=== PATIENT | male | born 1965 | race Caucasian/White ===

== ENCOUNTER 2018-12-31 05:13 | Inpatient (IN) ==
--- NOTE | 2018-12-07 20:18 | PAT Medication Instructions ---
Medication Instructions Date of Service December 07, 2018 Home Medications meloxicam 7.5 mg PO DAILY tramadol 50 mg PO DAILY PRN trazodone 100 mg PO HS ASK your surgeon for instructions meloxicam 7.5 mg PO DAILY Take morning of surgery With a small sip of water, OTHERWISE NOTHING TO EAT OR DRINK AFTER MIDNIGHT: tramadol 50 mg PO DAILY PRN (okay to take up to 4 hours prior to surgery if needed) Take evening before surgery tramadol 50 mg PO DAILY PRN (if needed) trazodone 100 mg PO HS Other Notes If you have any questions please call us at [phone] or [phone] or [phone] or [phone]
--- NOTE | 2018-12-08 14:07 | Anesthesiology Consultation ---
Date of Service December 08, 2018 Assessment & Plan (1) Encounter for pre-operative examination: Chart Review Chart Review: Pending: Refer to Additional Notes / Consult section and Patient seen in Pre Admission Testing Awaiting labs and EKG. Patient appears ok for surgery. Agrees to SAB with sedation. Consults Requested none History Surgery Operation Date: 12/31/18 07:15 Proposed Procedures p Left Hip Replacement - Yoni Sanderson MD Height/Weight Height: 5 ft 8 in Weight: 93.5 kg Allergies Allergy/AdvReac Type Severity Reaction Status Date / Time No Known Allergies Allergy Verified 12/03/18 14:03 Medications Home Medications Medication Instructions Recorded Confirmed Last Taken meloxicam 7.5 mg PO DAILY 12/03/18 12/03/18 Unknown tramadol 50 mg PO DAILY PRN 12/03/18 12/03/18 Unknown trazodone 100 mg PO HS 12/03/18 12/03/18 Unknown Past Medical History Medical History Chronic back pain Osteoarthritis Exercise / Class Metabolic Activity 1 > 8 Run/Swim/Ski/Tennis Past Family History Family History Mother Family history of diabetes mellitus Uncle Family hx of colon cancer Father FHx: stomach cancer Past Surgical History Surgical History History of colonoscopy S/P epidural steroid injection S/P inguinal hernia repair as a child Past Anesthesia History No Hx of Anesthesia Complications and No Family Hx of Anesthesia Complications History of PONV No Hx of PONV and No Hx of Motion Sickness Social History Smoking Status: Former smoker tobacco type: cigarettes Smoking cigarettes per day: 1 ppd x 5 years Do You Dip or Chew Tobacco: No Smoking End Date: 1998 Hx Alcohol Use: Yes Alcohol type: beer alcohol intake frequency: a few times a week Hx Substance Use: No substance use type: does not use Physical Exam Vital Signs Last Vital Signs Temp 36.9 C 12/08/18 14:01 Pulse 80 12/08/18 14:01 Resp 18 12/08/18 14:01 BP 130/79 12/08/18 14:01 Pulse Ox 98 12/08/18 14:01 ENMT Mouth: + dentition abnormality and + dental restorations (lower partial ); no TMJ abnormality Thyromental Distance: > or= 3.5 Finger Breadths Mallampati Class: II Neck normal visual inspection Respiratory normal respiratory effort Auscultation: lungs clear to auscultation bilaterally Cardiovascular Rate/Rhythm: regular rate and regular rhythm Heart Sounds: no murmur Neurologic moves all extremities Motor/Sensory: no sensory deficit Psychiatric Orientation: alert and oriented x 3
[2018-12-08 16:03] LABS: Basophils # (auto) 0.06 K/uL (0-0.2); Basophils % (auto) 0.9 %; Eosinophils # (auto) 0.43 K/uL (0-0.5); Eosinophils % (auto) 6.4 %; Hematocrit (blood only) 40.3 % (42-52); Hemoglobin 13.8 g/dL (14.0-18.0); Immature Granulocytes # (auto) 0.01 K/uL (0.00-0.02); Immature Granulocytes % (auto) 0.1 %; Lymphocytes # (auto) 2.03 K/uL (1.2-3.4); Lymphocytes % (auto) 30.1 %; Mean Corpuscular Hemoglobin 30.8 pg (25-34); Mean Corpuscular Hgb Conc 34.2 g/dL (32-36); Mean Platelet Volume 9.8 fL (7.4-10.4); Monocytes # (auto) 0.61 K/uL (0.11-0.59); Neutrophils # (auto) 3.61 K/uL (1.4-6.5); Neutrophils % (auto) 53.5 %; Platelet Count 236 K/uL (130-400); Red Blood Count 4.48 M/uL (4.7-6.1); White Blood Count 6.75 K/uL (4.8-10.8)
[2018-12-08 16:10] LABS: Albumin Level 3.6 gm/dl (3.4-5.0); BUN Creatinine Ratio 16.1 (10-20); Calcium 8.4 mg/dl (8.5-10.1); Creatinine Clr Calc Pharmacy 89.6 ml/min; Est GFR (Non-African American) 79.4; Potassium 4.2 mmol/L (3.5-5.1)
[2018-12-08 16:11] LABS: Appearance Urine Clear (Clear); Bacteria Urine Automated Negative (Negative); Bilirubin Urine Negative (Negative); Blood Urine 1+ (Negative); Color Urine Yellow; Epithelial Cell Urine Auto 0-5 /lpf (0-5); Glucose Urine UA Negative (Negative); Ketones Urine Trace (Negative); Leukocyte Esterase Urine Negative (Negative); Nitrite Urine Negative (Negative); Protein Urine Negative (Negative); RBC Urine Automated 0-4 /hpf (0-4); Specific Gravity Urine 1.027 (1.000-1.030); Urobilinogen Urine Negative (Negative)
[2018-12-08 16:13] LABS: Bilirubin,Total 0.3 mg/dl (0.2-1); Globulin 3.5 gm/dl (2.5-4.0); Total Protein 7.1 gm/dl (6.4-8.2)
[2018-12-08 16:15] LABS: Partial Thromboplastin Time 27.1 Seconds (21.0-31.0); Prothrombin Time 9.8 Seconds (9.0-12.0)
[2018-12-09 06:01] LABS: Estimated Average Glucose 120 mg/dl; Hemoglobin A1C 5.8 % (4.5-5.6)
--- NOTE | 2018-12-09 14:14 | History & Physical Report ---
Date of Service December 09, 2018 Assessment & Plan (1) Primary osteoarthritis of left hip: DIAGNOSIS: Left hip osteoarthritis. PROCEDURE: Left total hip arthroplasty. PLAN: The patient is scheduled to undergo this procedure at the [facility] as an inpatient with Dr. Yoni Sanderson on December 31, 2018. Risks and complications of the procedure, such as infection, bleeding, pain, scarring, nerve and blood vessel damage, weakness, wound problems, stiffness, incomplete relief of symptoms, hardware failure, hardware loosening, wear, fracture, tendon or ligament injury, dislocation, leg length inequality, blood clots, embolism, heart attack, stroke, and , were explained to patient by myself; however, informed consent was not obtained today because Dr. Sanderson was not present during the examination. We will have the patient sign the consent form in the presence of Dr. Sanderson on the day of his surgery. We will need to obtain a preoperative medical clearance from the patient's primary care provider, Dr. Mercado, along with preoperative CBC with differential, complete metabolic panel, PT, INR, blood type and screen, urinalysis, urine culture, EKG, hemoglobin A1c, and a nasal culture for MRSA. The patient states she will obtain this testing prior to his preanesthesia clearance assessment. The patient was provided with an order to obtain a walker as well as a hip kit. He states he most likely either get them from either [employer] or [facility]. I went over the discharge planning packet with the patient, and he states he will most likely be discharged home with some home health services to do his rehab for 1-2 weeks postoperatively. I gave him information about lectures offered by [facility] in regards to joint replacement surgery. I also educated him about the use of antibiotics prior to dental procedures after total joint replacement surgery. I also advised him he will need to use an abduction pillow for 6 weeks postoperatively. I advised the patient that I will discharge him from the hospital with prescriptions for a narcotic pain medication, and send a prescription for diclofenac sodium to his pharmacy. I also advised him that we will have him take 2 baby aspirin per day for 30 days postoperatively for DVT prophylaxis, along with the use of WILMER stockings, and I will have him resume his prior use of acetaminophen. I will provide him with specific instructions in the discharge packet. The patient will most likely be inpatient for 1 night postoperatively. If he does well with physical therapy and occupational therapy, the next morning we will discharge him, and have him follow up in our clinic as scheduled on January 13 with myself at 9:00 a.m. At that appointment, I will provide him with an order for outpatient physical therapy along with rehab protocol. The patient verbalized understanding of all information provided during today's visit, thanked us for the care he has received, and states if he has questions or concerns that should arise prior to the procedure date, he will contact the clinic accordingly. History of Present Illness Chief Complaint: CHIEF COMPLAINT: Bilateral hip pain, left greater than right. Primary Care Provider: Aysha Santa DO HISTORY OF PRESENT ILLNESS: This 53-year-old male presents to the clinic today for his preoperative history and physical. The patient has a 3-year history of bilateral hip pain with the left being greater than the right. He localizes most of his pain in the posterolateral aspect of the hip with radiation into the groin. The patient has failed conservative treatment with PT and nonsteroidal agents. He denies numbness or tingling. He states that he just returned from a trip to [facility], and is ready to proceed with surgical intervention. PAST SURGICAL HISTORY: Hernia repair. PAST MEDICAL HISTORY: None. FAMILY HISTORY: Positive for cancer and diabetes. ALLERGIES: The patient has no known drug allergies. CURRENT MEDICATIONS: Acetaminophen unknown dosage as needed, ibuprofen unknown dosage as needed, meloxicam 7.5 mg oral tablet daily, and trazodone unknown dosage as needed. SOCIAL HISTORY: The patient denies a history of smoking or illicit drug use. States that he occasionally consumes 10-12 alcoholic beverages per week. Allergies Allergy/AdvReac Type Severity Reaction Status Date / Time No Known Allergies Allergy Verified 12/03/18 14:03 Home Medications Home Medications Medication Instructions Recorded Confirmed Type meloxicam 7.5 mg PO DAILY 12/03/18 12/03/18 History tramadol 50 mg PO DAILY PRN 12/03/18 12/03/18 History trazodone 100 mg PO HS 12/03/18 12/03/18 History Past Med/Surg History Medical History Chronic back pain Osteoarthritis Surgical History History of colonoscopy S/P epidural steroid injection S/P inguinal hernia repair as a child Family History Mother Family history of diabetes mellitus Uncle Family hx of colon cancer Father FHx: stomach cancer Social History Preferred Language: Mongolian Communication Ability: Effective Member Of The Legislative Assembly Required: No Beliefs That Will Affect Care: None Current Living Situation: Spouse Other Information That Helps Us Care for You: No Feels Safe at Home: Yes Safety Concerns: Feels Safe At This Time Smoking Status: Former smoker Tobacco Type: cigarettes ; Cigarettes Per Day: 1 ppd x 5 years ; Do You Dip or Chew Tobacco: No ; Smoking End Date: 1998 ; Second Hand Exposure: Yes (as a child) ; Tobacco Cessation Education Requested by Patient: No Hx Alcohol Use: Yes Alcohol type: beer Hx Substance Use: No Review of Systems All systems reviewed & are unremarkable except as noted in HPI & below Physical Exam Physical Exam: PHYSICAL EXAMINATION: Skin: The patient's skin is normal in appearance. No open skin lesions or discharge. Eyes: Pupils are equal and react to light and accommodating. Extraocular movements are intact. Throat: Posterior oropharynx is clear with absence of edema, erythema or exudate. Cardiovascular exam: The patient has a regular rate and rhythm with no murmurs or gallops appreciated. Lungs: Auscultation of lung morel reveals clear breath sounds throughout, no wheezing, rales or rhonchi. Abdomen is mildly obese, nondistended, nontender, with normoactive bowel sounds. Extremities: Left hip flexion is to 80 degrees before pain is elicited. External rotation is to 40 degrees, internal rotation is to negative 20 degrees. Stinchfield test is positive. Active abduction and adduction causes referred pain to the groin. There is crepitation with range of motion. There is tenderness to palpation over the anterior groin lateral aspect of the hip. Otherwise, the patient is neurovascularly intact in the left lower extremity. Calf is soft and supple, nontender to palpation. Gait is antalgic. Neurological exam: Cranial nerves 2-12 are intact. No motor or sensory deficit. Psychological/general exam: The patient is alert and oriented x3 with proper grooming and hygiene. Results & Data Laboratory Results Lab Results 12/08/18 12/08/18 12/08/18 Range/Units 14:34 14:34 14:34 WBC 6.75 (4.8-10.8) K/uL RBC 4.48 L (4.7-6.1) M/uL Hgb 13.8 L (14.0-18.0) g/dL Hct 40.3 L (42-52) % MCV 90.0 (80-100) fL MCH 30.8 (25-34) pg MCHC 34.2 (32-36) g/dL RDW Std Deviation 39.0 (36.4-46.3) fL RDW Coeff of Arie 12.0 (11.5-14.5) % Plt Count 236 (130-400) K/uL MPV 9.8 (7.4-10.4) fL Immature Gran % (Auto) 0.1 % Neut % (Auto) 53.5 % Lymph % (Auto) 30.1 % [place] % (Auto) 9.0 % Eos % (Auto) 6.4 % Baso % (Auto) 0.9 % Immature Gran # (Auto) 0.01 (0.00-0.02) K/uL Neut # (Auto) 3.61 (1.4-6.5) K/uL Lymph # (Auto) 2.03 (1.2-3.4) K/uL [place] # (Auto) 0.61 H (0.11-0.59) K/uL Eos # (Auto) 0.43 (0-0.5) K/uL Baso # (Auto) 0.06 (0-0.2) K/uL PT (9.0-12.0) Seconds INR (0.9-1.1) APTT (21.0-31.0) Seconds PTT Ratio Sodium 143 (136-145) mmol/L Potassium 4.2 (3.5-5.1) mmol/L Chloride 109 H (98-107) mmol/L Carbon Dioxide 28 (21-32) mmol/L Anion Gap 6.0 (3-11) BUN 17 (7-18) mg/dl Creatinine 1.07 (0.6-1.4) mg/dl Est Cr Clr Drug Dosing 89.6 ml/min Est GFR ( Amer) 92.0 Est GFR (Non-Af Amer) 79.4 BUN/Creatinine Ratio 16.1 (10-20) Glucose 92 (70-99) mg/dl Estimat Average Glucose mg/dl Hemoglobin A1c (4.5-5.6) % Calcium 8.4 L (8.5-10.1) mg/dl Total Bilirubin 0.3 (0.2-1) mg/dl AST 17 (15-37) U/L ALT 22 (12-78) U/L Alkaline Phosphatase 74 (45-117) U/L Total Protein 7.1 (6.4-8.2) gm/dl Albumin 3.6 (3.4-5.0) gm/dl Globulin 3.5 (2.5-4.0) gm/dl Albumin/Globulin Ratio 1.0 (0.9-2) Urine Color Yellow Urine Appearance Clear (Clear) Urine pH 5.0 (4.5-7.5) Ur Specific [place] 1.027 (1.000-1.030) Urine Protein Negative (Negative) Urine Glucose (UA) Negative (Negative) Urine Ketones Trace H (Negative) Urine Blood 1+ H (Negative) Urine Nitrite Negative (Negative) Urine Bilirubin Negative (Negative) Urine Urobilinogen Negative (Negative) Ur Leukocyte Esterase Negative (Negative) Urine WBC (Auto) 1-5 (0-5) /hpf Urine RBC (Auto) 0-4 (0-4) /hpf U Hyaline Cast (Auto) 1-5 (0-5) /lpf U Epithel Cells (Auto) 0-5 (0-5) /lpf Urine Bacteria (Auto) Negative (Negative) Nasal Screen MRSA (PCR) (Negative) Blood Type Antibody Screen 12/08/18 12/08/18 12/08/18 Range/Units 14:34 14:34 14:34 WBC (4.8-10.8) K/uL RBC (4.7-6.1) M/uL Hgb (14.0-18.0) g/dL Hct (42-52) % MCV (80-100) fL MCH (25-34) pg MCHC (32-36) g/dL RDW Std Deviation (36.4-46.3) fL RDW Coeff of Arie (11.5-14.5) % Plt Count (130-400) K/uL MPV (7.4-10.4) fL Immature Gran % (Auto) % Neut % (Auto) % Lymph % (Auto) % [place] % (Auto) % Eos % (Auto) % Baso % (Auto) % Immature Gran # (Auto) (0.00-0.02) K/uL Neut # (Auto) (1.4-6.5) K/uL Lymph # (Auto) (1.2-3.4) K/uL [place] # (Auto) (0.11-0.59) K/uL Eos # (Auto) (0-0.5) K/uL Baso # (Auto) (0-0.2) K/uL PT 9.8 (9.0-12.0) Seconds INR 1.0 (0.9-1.1) APTT 27.1 (21.0-31.0) Seconds PTT Ratio 1.0 Sodium (136-145) mmol/L Potassium (3.5-5.1) mmol/L Chloride (98-107) mmol/L Carbon Dioxide (21-32) mmol/L Anion Gap (3-11) BUN (7-18) mg/dl Creatinine (0.6-1.4) mg/dl Est Cr Clr Drug Dosing ml/min Est GFR ( Amer) Est GFR (Non-Af Amer) BUN/Creatinine Ratio (10-20) Glucose (70-99) mg/dl Estimat Average Glucose 120 mg/dl Hemoglobin A1c 5.8 H (4.5-5.6) % Calcium (8.5-10.1) mg/dl Total Bilirubin (0.2-1) mg/dl AST (15-37) U/L ALT (12-78) U/L Alkaline Phosphatase (45-117) U/L Total Protein (6.4-8.2) gm/dl Albumin (3.4-5.0) gm/dl Globulin (2.5-4.0) gm/dl Albumin/Globulin Ratio (0.9-2) Urine Color Urine Appearance (Clear) Urine pH (4.5-7.5) Ur Specific [place] (1.000-1.030) Urine Protein (Negative) Urine Glucose (UA) (Negative) Urine Ketones (Negative) Urine Blood (Negative) Urine Nitrite (Negative) Urine Bilirubin (Negative) Urine Urobilinogen (Negative) Ur Leukocyte Esterase (Negative) Urine WBC (Auto) (0-5) /hpf Urine RBC (Auto) (0-4) /hpf U Hyaline Cast (Auto) (0-5) /lpf U Epithel Cells (Auto) (0-5) /lpf Urine Bacteria (Auto) (Negative) Nasal Screen MRSA (PCR) Negative (Negative) Blood Type Antibody Screen 12/08/18 Range/Units 14:34 WBC (4.8-10.8) K/uL RBC (4.7-6.1) M/uL Hgb (14.0-18.0) g/dL Hct (42-52) % MCV (80-100) fL MCH (25-34) pg MCHC (32-36) g/dL RDW Std Deviation (36.4-46.3) fL RDW Coeff of Arie (11.5-14.5) % Plt Count (130-400) K/uL MPV (7.4-10.4) fL Immature Gran % (Auto) % Neut % (Auto) % Lymph % (Auto) % [place] % (Auto) % Eos % (Auto) % Baso % (Auto) % Immature Gran # (Auto) (0.00-0.02) K/uL Neut # (Auto) (1.4-6.5) K/uL Lymph # (Auto) (1.2-3.4) K/uL [place] # (Auto) (0.11-0.59) K/uL Eos # (Auto) (0-0.5) K/uL Baso # (Auto) (0-0.2) K/uL PT (9.0-12.0) Seconds INR (0.9-1.1) APTT (21.0-31.0) Seconds PTT Ratio Sodium (136-145) mmol/L Potassium (3.5-5.1) mmol/L Chloride (98-107) mmol/L Carbon Dioxide (21-32) mmol/L Anion Gap (3-11) BUN (7-18) mg/dl Creatinine (0.6-1.4) mg/dl Est Cr Clr Drug Dosing ml/min Est GFR ( Amer) Est GFR (Non-Af Amer) BUN/Creatinine Ratio (10-20) Glucose (70-99) mg/dl Estimat Average Glucose mg/dl Hemoglobin A1c (4.5-5.6) % Calcium (8.5-10.1) mg/dl Total Bilirubin (0.2-1) mg/dl AST (15-37) U/L ALT (12-78) U/L Alkaline Phosphatase (45-117) U/L Total Protein (6.4-8.2) gm/dl Albumin (3.4-5.0) gm/dl Globulin (2.5-4.0) gm/dl Albumin/Globulin Ratio (0.9-2) Urine Color Urine Appearance (Clear) Urine pH (4.5-7.5) Ur Specific [place] (1.000-1.030) Urine Protein (Negative) Urine Glucose (UA) (Negative) Urine Ketones (Negative) Urine Blood (Negative) Urine Nitrite (Negative) Urine Bilirubin (Negative) Urine Urobilinogen (Negative) Ur Leukocyte Esterase (Negative) Urine WBC (Auto) (0-5) /hpf Urine RBC (Auto) (0-4) /hpf U Hyaline Cast (Auto) (0-5) /lpf U Epithel Cells (Auto) (0-5) /lpf Urine Bacteria (Auto) (Negative) Nasal Screen MRSA (PCR) (Negative) Blood Type O Positive Antibody Screen NEGATIVE
[2018-12-31] MEDS ORDERED: TRANEXAMIC ACID 1,000 MG **IV Pre-op IV SCH (06:00)
[2018-12-31] MEDS ORDERED: SCOPOLAMINE 1.5 MG TDSY TD SCH (06:00)
[2018-12-31] MEDS ORDERED: dexAMETHasone 4 MG TAB PO SCH (06:00)
[2018-12-31] MEDS ORDERED: ROPIVACAINE 0.5% HCL/PF 150 MG, BUPIVACAINE 0.5% MPF 30 ML, EPINEPHrine 0.15 MG, Ketoro... INFIL SCH (06:00)
[2018-12-31] MEDS ORDERED: CEFAZOLIN 2000MG 2,000 MG/15 ML SYR IV SCH (06:00)
[2018-12-31] MEDS ORDERED: ACETAMINOPHEN 500 MG TAB PO SCH (06:00)
[2018-12-31] MEDS ORDERED: LR 60ML/HR IV SCH (06:00)
[2018-12-31] MEDS ORDERED: FAMOTIDINE 20 MG TAB PO SCH (06:00)
[2018-12-31] MEDS ORDERED: LR 500ML BOLUS, THEN 15ML/HR IV SCH (06:00)
[2018-12-31] MEDS ORDERED: METOCLOPRAMIDE HCL 10 MG TABLET PO SCH (06:00)
[2018-12-31] MEDS ORDERED: CeleBREX 200 MG CAP PO SCH (06:00)
[2018-12-31] MEDS ORDERED: TRAMADOL HCL 50 MG TABLET PO SCH (06:00)
[2018-12-31] MEDS ORDERED: BUPIVACAINE 0.5 % 5 MG/1 ML PF 10ML VIAL ONE (06:27)
[2018-12-31] MEDS ORDERED: TRANEXAMIC ACID 1,000 MG **IV Intra-op IV SCH (06:30)
[2018-12-31] MEDS ORDERED: fentaNYL citrate 100 MCG/2 ML VIAL ONE (06:35)
[2018-12-31] MEDS ORDERED: MIDAZOLAM HCL 1 MG/ML 2ML VIAL ONE ×2 (06:35→07:18)
--- NOTE | 2018-12-31 06:51 | History & Physical Bridge Note ---
Date of Service December 31, 2018 History & Physical Bridge Note I have examined the patient, reviewed the History & Physical and in the interval since the performance of the History & Physical I have noted the following changes of clinical significance: no changes noted
[2018-12-31] MEDS ORDERED: ORTHO JOINT ANESTHETIC ONE (06:53)
[2018-12-31] MEDS ORDERED: LABETALOL HCL IV 5 MG/ML 20ML IV PRN (07:18)
[2018-12-31] MEDS ORDERED: ONDANSETRON INJ 2 MG/ML 2 ML VIAL IV PRN ×2 (07:18→09:02)
[2018-12-31] MEDS ORDERED: fentaNYL citrate 100 MCG/2 ML VIAL IV PRN (07:18)
[2018-12-31] MEDS ORDERED: MEPERIDINE HCL 25 MG/ML CARP IV PRN (07:18)
[2018-12-31] MEDS ORDERED: PHENYLEPHRINE 100MCG/ML 5ML SYR IV PRN (07:18)
[2018-12-31] MEDS ORDERED: ATROPINE SULFATE 0.1 MG/ML 10ML SYR IV PRN (07:18)
[2018-12-31] MEDS ORDERED: ePHEDrine sulfate 50 MG/ML AMP IV PRN (07:18)
[2018-12-31] MEDS ORDERED: HYDROmorphone INJ 1 MG/ML SYRINGE IV PRN (07:18)
[2018-12-31] MEDS ORDERED: ONDANSETRON INJ 2 MG/ML 2 ML VIAL ONE (07:33)
[2018-12-31] MEDS ORDERED: LIDOCAINE HCL 2% 2 ML VIAL/AMP(20MG/ML) INFIL ONE (07:33)
[2018-12-31] MEDS ORDERED: PROPOFOL IV EMULSION 10 MG/ML 20 ML VIAL IV ONE (07:33)
--- NOTE | 2018-12-31 08:51 | Post Operative Brief Note ---
Immediate Post Op Note v1 Date of Surgery December 31, 2018 Pre & Post Diagnosis Operation Date: 12/31/18 07:15 Pre-Op Diagnosis: Left Hip Osteoarthritis Post-Op Diagnosis: Left Hip Osteoarthritis I identified the patient and participated in the time-out.: Yes Procedure Operation Date: 12/31/18 07:15 Actual Procedures p Left Hip Arthroplasty, Uncemented(Left) - Yoni Sanderson MD Surgeon Yoni Sanderson MD Interrelated Special Education Teacher AUTUMN Jimenez PA-C Estimated Blood Loss 200 Findings Consistent with Post-Op Diagnosis Fluids 100 cc Anesthesia Type Spinal MAC Complications none Disposition Accompanied Patient To Recovery: No Disposition: Recovery Room
[2018-12-31] MEDS ORDERED: MAGNESIUM HYDROXIDE SUSP 30 ML UDC PO PRN (09:02)
[2018-12-31] MEDS ORDERED: bisacodyL 10 MG SUPP PR PRN (09:02)
[2018-12-31] MEDS ORDERED: METOCLOPRAMIDE HCL INJ 5 MG/ML 2 ML VIAL IV PRN (09:02)
[2018-12-31] MEDS ORDERED: DiphenhydrAMINE HCL 50 MG/ML VIAL IV PRN (09:02)
[2018-12-31] MEDS ORDERED: TRAMADOL HCL 50 MG TABLET PO PRN ×2 (09:02→09:07)
[2018-12-31] MEDS ORDERED: HYDROmorphone INJ 0.5 MG/0.5 ML SYR IV PRN (09:02)
[2018-12-31] MEDS ORDERED: TAMSULOSIN HCL 0.4 MG CAP PO PRN (09:02)
[2018-12-31] MEDS ORDERED: NALOXONE HCL 0.4 MG/1 ML VIAL/CARP IV PRN (09:02)
[2018-12-31] MEDS ORDERED: ALUMINUM/MAGNESIUM SUSP 30 ML UDC PO PRN (09:02)
--- NOTE | 2018-12-31 09:02 | Operative Report ---
Post Operative Report Pre & Post Diagnosis Operation Date: 12/31/18 07:15 Pre-Op Diagnosis: Left Hip Osteoarthritis Post-Op Diagnosis: Left Hip Osteoarthritis I identified the patient and participated in the time-out.: Yes Procedure Operation Date: 12/31/18 07:15 Actual Procedures p Left Hip Arthroplasty, Uncemented(Left) - Yoni Sanderson MD Surgeon Yoni Sanderson MD Contract Preparer AUTUMN Jimenez PA-C Estimated Blood Loss 200 Findings Consistent with Post-Op Diagnosis Specimens Left femoral head Complications none Disposition Accompanied Patient To Recovery: Yes Disposition: Recovery Room Description of Procedure I was present during the entire procedure assisting with wound closure and dressing application. Please see Dr. Sanderson procedure note for specifics of the case. I attest to the content of the Intraoperative Record and any orders documented therein. Any exceptions are noted below.
--- NOTE | 2018-12-31 09:40 | Anesthesiology Progress Note ---
Date of Service December 31, 2018 Anesthesia Post Procedure Vital Signs Vital Signs: Temp Pulse Pulse Resp BP BP Pulse Ox 12/31/18 09:30 56 L 12 108/73 99 12/31/18 09:20 70 13 112/68 99 12/31/18 09:10 66 14 112/72 98 12/31/18 09:01 36.4 C L 77 15 110/72 98 12/31/18 06:12 37 C 73 20 143/94 H 96 Pain Intensity Left Hip: Pain Intensity: 0 Transfer of Care Handoff Completed per policy Notes Mental Status: alert / awake / arousable Patient Amnestic to Procedure: Yes Nausea / Vomiting: adequately controlled Pain: adequately controlled Airway Patency, RR, SpO2: stable & adequate BP & HR: stable & adequate Hydration State: stable & adequate Neuraxial Anesthesia: was administered and sensory block is resolving Anesthetic Complications: no major complications apparent and Pt Satisfied with anesthetic care
--- NOTE | 2018-12-31 10:05 | Operative Report ---
DATE OF OPERATION: 12/31/2018 PREOPERATIVE DIAGNOSIS: Left hip osteoarthritis. POSTOPERATIVE DIAGNOSIS: Left hip osteoarthritis. OPERATIONS PERFORMED: Left total hip arthroplasty. SURGEON: Yoni Sanderson MD. RELOCATION COMMISSIONER: Dr. Parvez Jimenez. ESTIMATED BLOOD LOSS: 200 mL. IV FLUIDS: 1000 mL crystalloid. SPECIMENS: Femoral head. COMPLICATIONS: None. IMPLANTS: 1. DePuy [place] Gription acetabular shell sector cup 56 mm outer diameter. 2. [place] cancellous bone screw 6.5 mm x 45 mm. 3. [place] Ultrex polyethylene liner neutral for a 36 mm femoral head. 4. DePuy [place] 5 high offset tapered femoral stem with Por[place]oat. 5. Biolox delta ceramic femoral head 36 mm diameter with +5 offset. INDICATIONS: The patient is a 53-year-old gentleman who has had bilateral hip pain, left worse than right for over 3.5 years. X-rays demonstrate end-stage osteoarthritis with a complete joint space loss, subchondral sclerosis and peripheral osteophyte formation. I had a long discussion with him about the risks and benefits of surgery, alternatives to surgery and expected outcomes. After reviewing all these, he elected to proceed with surgery. All questions were answered. Informed consent was signed. DESCRIPTION OF THE OPERATION: The patient was identified in the preoperative holding area where his surgical site was marked. He was given a spinal anesthetic and brought back to main Operating Room where he was placed on the Operating Room table and moved up into the lateral decubitus position. Axillary roll was placed. All bony prominences were padded. Perioperative antibiotics were administered. He was prepped and draped in normal sterile fashion. Prior to incision, a multidisciplinary timeout was called. All in the room were in agreement. We began by making a 16 cm long incision for a posterior approach to the hip. We dissected down through subcutaneous tissues to the level of fascia, which was incised in line with the incision. Charnley bow was placed. Trochanteric bursa was excised. The piriformis and short external rotators were dissected off the posterior aspect of the hip capsule. A box cut was made in the hip capsule. The femoral head was dislocated. Center of the femoral head to lesser trochanteric distance was measured at 57 mm. We then made our femoral neck cut at 10 mm above the lesser trochanter, which was our preoperative template. The femoral head was then sent for permanent specimen. The acetabulum was then exposed. The contents of the cotyloid fossa were covered by osteophyte. Therefore, a 46 mm reamer was used to remove the medial osteophytes exposing the pulvinar fat which was then removed with electrocautery. We then continued to medialize him with a 48 mm reamer down to the medial wall. We then sequentially reamed them up all the way to a size 56 mm cup. This gave us a nice cancellous bleeding bone circumferentially. The acetabulum was then irrigated out and the [place] Gription 56 mm cup was opened up and was impacted down into position with 25 degrees of anteversion and 45 degrees of lateral opening. The 45 mm drill was used and a 45 mm screw was then placed up into the ilium. Excellent fixation was obtained. The polyethylene liner for a 36 mm femoral head was then opened up and was impacted down into position. The locking mechanism was checked to ensure that it engaged, which it had. Next, the femoral neck was exposed. The abductors were protected. The lateral neck was removed with a box osteotome. Intramedullary guide was used followed by the lateralizing reamer. We then reamed him up to a size 5, which was our preoperative template. We then broached him all the way up to a size 5, which had excellent fill of the femoral neck and good torsional stability. We then trialled them with a high offset neck and a +1.5 head. He had a little bit shortened leg lengths with +1.5 head. Therefore, we upsized him to a +5 head. This had symmetric leg lengths. He was stable in external rotation and extension. He had good stability in the sleeper position. At 90 degrees of hip flexion, he could be internally rotated 45 degrees before leaving out of the cup. I was very happy with the stability exam. Therefore, the trial components from the femur were removed. The femoral canal was irrigated and dried. A real size 5 high offset [place] femoral stem was opened up and was impacted down into position. It sat at the same level as the broach. We therefore opened up the +5 ceramic femoral head 36 mm diameter and gently impacted this onto the trunnion. The hip was then atraumatically reduced. The wound was irrigated out with copious amounts of Betadine, which was allowed to sit for 3 minutes. Next, the periarticular injection cocktail was placed. We then repaired the piriformis and short external rotators along with the posterior hip capsule through bone tunnels in the posterior aspect of the greater trochanter. The fascia was run with #1 looped PDS suture. The subcutaneous layer was closed with #1 PDS. A 2-0 Vicryl was used in the deep dermis. Zipline was used for the skin. The patient was placed into a Silverlon dressing as well as a compressive dressing over the top. He was then rolled supine. His leg lengths were checked which were symmetric. His sedation was lifted and he was transferred to the Recovery Room in stable condition. POSTOPERATIVE COURSE: The patient will be admitted overnight for pain control and monitoring. He will be weightbearing as tolerated with posterior hip precautions. He will be on aspirin for DVT prophylaxis. I attest to the content of the Intraoperative Record and any orders documented therein. Any exception s are noted below.
--- NOTE | 2018-12-31 10:06 | XRay Report ---
XR hip 1V LT w pelvis CLINICAL HISTORY: Postoperative evaluation. COMPARISON: Pelvis radiograph December 08, 2018. FINDINGS: Alignment of the total left hip arthroplasty is anatomic. There is no fracture or unexpect ed radiopaque foreign body. Severe right hip osteoarthrosis noted. IMPRESSION: Expected findings following total left hip arthroplasty. Electronically signed by: Edd Chávez M.D. 12/31/2018 10:04 AM
[2018-12-31] MEDS: SODIUM CHLORIDE 0.9% 1000ML 1,000 ML IV SCH ×2 (10:23→22:25)
[2018-12-31] MEDS: KETOROLAC 30 MG/ML VIAL IV SCH ×3 (10:34→21:54)
[2018-12-31] MEDS: CEFAZOLIN 2000MG 2,000 MG/15 ML SYR IV SCH ×2 (13:53→21:54)
[2018-12-31] MEDS: ACETAMINOPHEN 500 MG TAB PO SCH ×2 (13:53→20:46)
[2018-12-31] MEDS ORDERED: TRANEXAMIC ACID 1,000 MG in 0.9 % SODIUM CHLORIDE 100 ML IV SCH (15:00)
[2018-12-31] MEDS: CHECK SCOPOLAMINE PATCH PLACEMENT SCH ×2 (16:09→23:51)
[2018-12-31] MEDS: OXYCODONE HCL IR 5 MG TAB (IMMEDIATE RELEASE) PO PRN (16:12)
[2018-12-31] MEDS: DOCUSATE SODIUM 100 MG CAP PO SCH (20:45)
[2018-12-31] MEDS: ASPIRIN 81 MG ECTAB PO SCH (20:45)
[2018-12-31] MEDS ORDERED: TRAZODONE HCL 100 MG TAB PO SCH (21:00)
[2018-12-31] MEDS ORDERED: SENNA 8.6 MG TAB PO SCH (21:00)
[2019-01-01] MEDS: OXYCODONE HCL IR 5 MG TAB (IMMEDIATE RELEASE) PO PRN (03:54)
[2019-01-01 05:20] LABS: Basophils # (auto) 0.01 K/uL (0-0.2); Basophils % (auto) 0.1 %; Eosinophils # (auto) 0.03 K/uL (0-0.5); Eosinophils % (auto) 0.3 %; Hematocrit (blood only) 32.1 % (42-52); Hemoglobin 11.1 g/dL (14.0-18.0); Immature Granulocytes # (auto) 0.03 K/uL (0.00-0.02); Immature Granulocytes % (auto) 0.3 %; Lymphocytes # (auto) 1.38 K/uL (1.2-3.4); Lymphocytes % (auto) 11.5 %; Mean Corpuscular Hemoglobin 30.4 pg (25-34); Mean Corpuscular Hgb Conc 34.6 g/dL (32-36); Mean Corpuscular Volume 87.9 fL (80-100); Monocytes # (auto) 1.23 K/uL (0.11-0.59); Monocytes % (auto) 10.3 %; Neutrophils # (auto) 9.28 K/uL (1.4-6.5); Neutrophils % (auto) 77.5 %; Platelet Count 202 K/uL (130-400); RDW Coefficient of Variation 12.1 % (11.5-14.5); RDW Standard Deviation 39.2 fL (36.4-46.3); Red Blood Count 3.65 M/uL (4.7-6.1); White Blood Count 11.96 K/uL (4.8-10.8)
[2019-01-01] MEDS: KETOROLAC 30 MG/ML VIAL IV SCH (05:45)
[2019-01-01] MEDS: ACETAMINOPHEN 500 MG TAB PO SCH (05:45)
[2019-01-01] MEDS: SODIUM CHLORIDE 0.9% 1000ML 1,000 ML IV SCH (05:50)
[2019-01-01 05:51] LABS: BUN Creatinine Ratio 17.8 (10-20); Calcium 8.1 mg/dl (8.5-10.1); Creatinine Clr Calc Pharmacy 90.1 ml/min; Est GFR (Non-African American) 79.4; Potassium 4.5 mmol/L (3.5-5.1)
--- NOTE | 2019-01-01 07:47 | Anesthesiology Progress Note ---
Date of Service January 01, 2019 Anesthesia Post Procedure Vital Signs Vital Signs: Temp Pulse Pulse Resp BP Pulse Ox 01/01/19 07:28 36.8 C 52 L 16 110/67 99 01/01/19 04:00 36.6 C 72 16 94/51 L 96 12/31/18 23:15 36.7 C 63 18 105/64 97 12/31/18 15:21 36.6 C 70 18 131/84 97 12/31/18 13:00 74 16 117/72 94 12/31/18 12:00 73 16 133/81 95 12/31/18 10:59 74 16 121/76 97 12/31/18 10:31 36.9 C 78 18 138/71 95 12/31/18 10:07 36.6 C 77 16 114/73 99 12/31/18 09:40 37.0 C 59 L 13 123/76 99 12/31/18 09:30 56 L 12 108/73 99 12/31/18 09:20 70 13 112/68 99 12/31/18 09:10 66 14 112/72 98 12/31/18 09:01 36.4 C L 77 15 110/72 98 Pain Intensity Left Hip: Pain Intensity: 3 Notes Mental Status: alert / awake / arousable and participated in evaluation Nausea / Vomiting: adequately controlled Pain: adequately controlled Airway Patency, RR, SpO2: stable & adequate BP & HR: stable & adequate Hydration State: stable & adequate
[2019-01-01] MEDS ORDERED: dexAMETHasone 4 MG TAB PO SCH (08:00)
[2019-01-01] MEDS: ASPIRIN 81 MG ECTAB PO SCH (08:38)
[2019-01-01] MEDS: DOCUSATE SODIUM 100 MG CAP PO SCH (08:38)
--- NOTE | 2019-01-01 08:44 | Orthopedic Progress Note ---
Date of Service January 01, 2019 Assessment & Plan (1) History of total left hip arthroplasty: Total hip precautions WBAT with walker Abduction pillow use x 6 wks TEDs and Aspirin for DVT prophy Pain control with PO meds In-home rehab x 2 wks F/u at [facility] as scheduled in 2 wks. Subjective This 53 yo M is day 1 s/p Left total hip arthroplasty. States that is doing well. Pain is 2/10. States that it is well controlled with PO meds. Has been up ambulating with the walker. Has no numbness/tingling, fever, chill, sweat, nausea, vomiting or difficulty voiding. States that he is ready to go home. Review of Systems Review of Systems: All systems reviewed & are unremarkable except as noted in HPI & below Physical Exam Physical Exam: Left lower leg: Dressing clean, dry and intact. Able to fire quad and perform SLRT. Knee ROM from 0-90 causes only mild hip discomfort. Minimal pain with very light internal and external hip rotation. Able to actively dorsi/plantar flex foot. Calf soft and supple. Periph pulses easily palpable. Cap refill < 2 seconds. Results & Data Vital Signs (Past 12 Hours) Vital Signs Temp Pulse Resp BP Pulse Ox 01/01/19 07:28 36.8 C 52 L 16 110/67 99 01/01/19 04:00 36.6 C 72 16 94/51 L 96 12/31/18 23:15 36.7 C 63 18 105/64 97 Laboratory Results 01/01/19 01/01/19 Range/Units 05:04 05:04 WBC 11.96 H (4.8-10.8) K/uL RBC 3.65 L (4.7-6.1) M/uL Hgb 11.1 L (14.0-18.0) g/dL Hct 32.1 L (42-52) % MCV 87.9 (80-100) fL MCH 30.4 (25-34) pg MCHC 34.6 (32-36) g/dL RDW Std Deviation 39.2 (36.4-46.3) fL RDW Coeff of Arie 12.1 (11.5-14.5) % Plt Count 202 (130-400) K/uL MPV 9.0 (7.4-10.4) fL Immature Gran % (Auto) 0.3 % Neut % (Auto) 77.5 % Lymph % (Auto) 11.5 % Moody % (Auto) 10.3 % Eos % (Auto) 0.3 % Baso % (Auto) 0.1 % Immature Gran # (Auto) 0.03 H (0.00-0.02) K/uL Neut # (Auto) 9.28 H (1.4-6.5) K/uL Lymph # (Auto) 1.38 (1.2-3.4) K/uL Moody # (Auto) 1.23 H (0.11-0.59) K/uL Eos # (Auto) 0.03 (0-0.5) K/uL Baso # (Auto) 0.01 (0-0.2) K/uL Sodium 139 (136-145) mmol/L Potassium 4.5 (3.5-5.1) mmol/L Chloride 108 H (98-107) mmol/L Carbon Dioxide 28 (21-32) mmol/L Anion Gap 3.0 (3-11) BUN 19 H (7-18) mg/dl Creatinine 1.07 (0.6-1.4) mg/dl Est Cr Clr Drug Dosing 90.1 ml/min Est GFR ( Amer) 92.0 Est GFR (Non-Af Amer) 79.4 BUN/Creatinine Ratio 17.8 (10-20) Glucose 109 H (70-99) mg/dl Calcium 8.1 L (8.5-10.1) mg/dl
[2019-01-01] MEDS ORDERED: MULTIVITAMIN TAB PO SCH (09:00)
--- NOTE | 2019-01-01 10:56 | Discharge Summary ---
Date of Service January 01, 2019 Admission HPI Per Admitting Provider HISTORY OF PRESENT ILLNESS: This 53-year-old male presents to the clinic today for his preoperative history and physical. The patient has a 3-year history of bilateral hip pain with the left being greater than the right. He localizes most of his pain in the posterolateral aspect of the hip with radiation into the groin. The patient has failed conservative treatment with PT and nonsteroidal agents. He denies numbness or tingling. He states that he just returned from a trip to [facility], and is ready to proceed with surgical intervention. PAST SURGICAL HISTORY: Hernia repair. PAST MEDICAL HISTORY: None. FAMILY HISTORY: Positive for cancer and diabetes. ALLERGIES: The patient has no known drug allergies. CURRENT MEDICATIONS: Acetaminophen unknown dosage as needed, ibuprofen unknown dosage as needed, meloxicam 7.5 mg oral tablet daily, and trazodone unknown dosage as needed. SOCIAL HISTORY: The patient denies a history of smoking or illicit drug use. States that he occasionally consumes 10-12 alcoholic beverages per week. Admission Exam Per Admitting Provider PHYSICAL EXAMINATION: Skin: The patient's skin is normal in appearance. No open skin lesions or discharge. Eyes: Pupils are equal and react to light and accommodating. Extraocular movements are intact. Throat: Posterior oropharynx is clear with absence of edema, erythema or exudate. Cardiovascular exam: The patient has a regular rate and rhythm with no murmurs or gallops appreciated. Lungs: Auscultation of lung morel reveals clear breath sounds throughout, no wheezing, rales or rhonchi. Abdomen is mildly obese, nondistended, nontender, with normoactive bowel sounds. Extremities: Left hip flexion is to 80 degrees before pain is elicited. External rotation is to 40 degrees, internal rotation is to negative 20 degrees. Stinchfield test is positive. Active abduction and adduction causes referred pain to the groin. There is crepitation with range of motion. There is tenderness to palpation over the anterior groin lateral aspect of the hip. Otherwise, the patient is neurovascularly intact in the left lower extremity. Calf is soft and supple, nontender to palpation. Gait is antalgic. Neurological exam: Cranial nerves 2-12 are intact. No motor or sensory deficit. Psychological/general exam: The patient is alert and oriented x3 with proper grooming and hygiene. Principal Diagnosis Left hip osteoarthritis Discharge Exam Left lower leg: Dressing clean, dry and intact. Able to fire quad and perform SLRT. Knee ROM from 0-90 causes only mild hip discomfort. Minimal pain with very light internal and external hip rotation. Able to actively dorsi/plantar flex foot. Calf soft and supple. Periph pulses easily palpable. Cap refill < 2 seconds. Discharge Data Allergies Allergy/AdvReac Type Severity Reaction Status Date / Time No Known Allergies Allergy Verified 12/31/18 05:40 Consultations 01/01/19 08:00 Consult Case Management - Discharge Planning Routine Procedures Performed Operation Date: 12/31/18 07:15 Actual Procedures p Left Hip Arthroplasty, Uncemented(Left) - Yoni Sanderson MD Hospital Course (1) History of total left hip arthroplasty: Patient had an uneventful overnight stay. Pain was well controlled and he was able to easily ambulate with walker assistance. Ready for Discharge after AM PT/OT today. Total hip precautions WBAT with walker Abduction pillow use x 6 wks TEDs and Aspirin for DVT prophy Pain control with PO meds In-home rehab x 2 wks F/u at [facility] as scheduled in 2 wks. Total Time Total Time Spent Total Time Spent (In Minutes): 20 mins Total Time Includes: Examination of the Patient, Discharge Planning and Medication Reconciliation Discharge Plan Discharge Items Patient Disposition: Home - Home Health Services Reason For Visit: Left Hip Osteoarthritis Discharge Diagnosis: Left Hip Osteoarthritis Activity: As commented below Lifting: None Bathing: Keep incision dry Bathing Comment: May shower tomorrow Sexual Activity: Wait until after follow-up appointment Exercise/Sports: Wait until after follow-up appointment Weightbearing: Left weightbearing Weightbearing Comment: as tolerated with walker assistance Non-emergency contact: Primary Care Provider Call non-emergency contact if: you have any medication questions, your pain is not controlled, your temperature is above 101.5, your wound has increased drainage and your wound pain has increased Follow-up/Referrals: Aysha Santa DO [Primary Care Provider] - Diet: Regular Addtl Attending Provider Instructions: Post-operative Instructions Dear Patient and Family/Friends, Before you are discharged from the hospital, it is important to know what to expect when you get home after surgery. To that end, we have created this sheet of discharge instructions which covers many commonly asked questions. Make sure you go through this sheet in its entirety with your nurse before you are discharged. Please note that we will go over the specifics of your surgery and recovery when you return for your first post-operative visit. Sincerely, Dr. Sanderson Medications 1. Aspirin 81 mg: you will take one tablet twice daily for 30 days post operatively to prevent blood clots. Please purchase this medication 2. Extra Strength Tylenol 500 mg: you may take two of these tablets with every other dose of your Oxycodone. When you discontinue use of Oxycodone, you may take every 6-8 hours as needed. 3. Oxycodone 5mg: you will be prescribed 30 of these tablets for pain control for the first several days post operatively as needed. 4. 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 Take 1 tablet after breakfast and 1 tab after dinner for 30 days post operative. An additional refill will be provided. If you take any other antiinflammatory medication, please discontinue them while you are using this medication. Pain Expect to be in a fair amount of pain after surgery. Remember, our goal is not to eliminate your pain, but to make it tolerable. It is a good idea to stay ahead of your pain by taking the medications you were prescribed once you get home. Typically, the pain starts improving 3-7 days after surgery. You should start weaning off the narcotic pain medication (oxycodone, hydrocodone, hydromorphone, morphine) as soon as your pain improves. Please call our office if your pain is not adequately controlled. Ice Ice your operative site at least 5 times a day for 15-30 minutes at a time. Make sure you have a thin cloth between the ice or cooling unit and your skin to prevent cosme bite. This is especially important if you received a nerve block. Continue icing your operative site for the first 5-7 days after surgery, then as needed. Diet/Nausea/Vomiting Start by drinking clear liquids and eating crackers. If you can tolerate this, then you may resume your normal diet. If you feel nauseated or vomit, take Zofran/ondansetron (if prescribed). Please call our office if you have intractable nausea or vomiting, or, if after hours, you may go to the Emergency Room for help. Constipation Constipation is a common side effect of narcotic pain medication. If you have not had a bowel movement within 2 days after surgery, we recommend purchasing an over the counter laxative such as Milk of Magnesia, Dulcolax, or Miralax from a local pharmacy, and taking it as instructed. Call our clinic if any questions. Nerve block The anesthesia team sometimes places a nerve block to help with post-operative pain control. This results in significant numbness and inability to move the extremity. The nerve block usually wears off in 8-12 hours, but sometimes can last up to 24 hours. Please call our office if you are still unable to move your extremity after 24 hours, unless you received a pain pump to take home. Nerve blocks typically wear off quickly, so start taking pain medication as soon as you start feeling soreness near your surgical site. Weight bearing and Range of Motion. Do not bear any weight through your operative extremity immediately after surgery. If you had upper extremity surgery, do not lift anything with that arm. If you are in a knee brace, keep it locked in place until your follow-up. We will discuss your weight bearing, range of motion, and lifting restrictions in detail at your first post-operative appointment. Continuous Passive Motion (CPM) Machine If you were prescribed a CPM machine, it will start after your first post- operative appointment, at which time we will give you instructions on the range of motion settings and duration of treatment Physical therapy You will be given a prescription for physical therapy or occupational therapy at your first post-operative appointment. Typically, patients start therapy within 1 week of surgery Wound care and showering We will inspect your wound at your first post-operative visit, and may do a dressing change at that time. Most patients will be in a water-proof dressing that is removed 14 days after surgery. It is normal to see some dried blood on the dressing. Do not remove your dressing, paper strips or sutures yourself unless you are given permission. Showering is allowed the day after surgery. Do not scrub or remove any dressings. The wound should not be submerged underwater (i.e. in a bathtub or pool) until 4 weeks after surgery WILMER stockings If you were given white stockings, these are to be worn at all times except to shower (on both legs) for the first 2 weeks after surgery. Driving You may not drive while taking narcotic pain medication or while in a cast, splint, sling or brace. You, the patient, need to make the final determination about when you are safe to drive, however, the earliest you may consider driving after surgery is below: Hand/Wrist/Elbow Surgery: 3 days Shoulder Surgery: 2 weeks Hip,/Knee/Ankle Surgery: 4 weeks Fracture repair: 6 weeks Return to Work Your return to work depends on what surgery was done and what type of work you do. Please bring any paperwork your employer needs completed to your first post-operative visit. Also, bring a description of your job duties, as this helps us to understand what risks you may face at work. Travel Avoid long distance travel (greater than 1 hour) in airplanes and cars for the first 6 weeks after surgery. If you must travel, you need to have a Doppler ultrasound done before you travel to rule out a blood clot in your legs. Follow-up You should have a follow-up appointment already scheduled 1-2 days after surgery. If not, please contact our office to make this appointment before you leave the hospital. When to call the office It is normal to have swelling and bruising in the limb that was operated on. This will improve with time. It is also normal to have fevers for the first 2 days after surgery. Reasons you should call your doctor include: Uncontrolled pain; Nausea, vomiting, or constipation that does not improve with medication; Fevers over 101.5, chills, sweats; Drainage or bleeding from the wound; Foul odor; Spreading areas of redness; Any other concerns Pending Studies at Discharge: No Stand-Alone Forms: [facility], Opioid Pain Management Medications and DC Order Prescriptions: New oxycodone 5 mg tablet 5 mg PO Q6H PRN (Reason: pain) Qty: 30 RF: 0 diclofenac sodium 75 mg tablet,delayed release (DR/EC) 75 mg PO BID PRN (Reason: pain) 30 Days Qty: 60 RF: 1 Continued tramadol 50 mg Tablet 50 mg PO DAILY PRN (Reason: Pain) RF: 0 trazodone 100 mg Tablet 100 mg PO HS RF: 0 Discontinued meloxicam 7.5 mg Tablet 7.5 mg PO DAILY RF: 0 Discharge Orders: Discharge Order (Routine); Ordered 01/01/19 Ordered By: Teddy Chung/Other Patient Handouts: Surgery Prevent DVT After, Replacement Hip After Hospital Admission Data Admit Date/Time: 12/31/18 09:03 Attending Provider: Yoni Sanderson Admit Provider: Yoni Sanderson Primary Care Provider: Aysha Santa Other Interventions: Discharge Summary Assessment (RN) Last Done: 01/01/19 09:26
[2019-01-01] MEDS ORDERED: CeleBREX 200 MG CAP PO SCH (11:00)
== END 2019-01-01 11:27 | disposition home health service (06) | DRG 470 ==
LOC: ASU 05:13 → 3E 09:03

== ENCOUNTER 2019-08-04 09:53 | Inpatient (IN) ==
--- NOTE | 2019-06-10 15:07 | Anesthesiology Consultation ---
Date of Service June 10, 2019 Assessment & Plan (1) Encounter for pre-operative examination: Chart Review Chart Review: Pending: Refer to Additional Notes / Consult section (updated preop labs) and Patient NOT seen in Pre Admission Testing Pt was a rescheduled surgery from 06/03/19 (seen in PAT 05/13/19). Needs updated preop labs - PCP note: 12/09/18: medically cleared for surgery- "YES" in regards to left hip arthroplasty done 12/31/18 at [facility] (SAB x 1 attempt at L3/L4 at [facility]). Per verbal from Khloe at surgeon's office, since patient had recent medical clearance prior to right hip replacement they do not need anything further/updated from PCP from their perspective. History Surgery Operation Date: 07/22/19 10:05 Proposed Procedures p Right Total Hip Arthroplasty - Yoni Sanderson MD Height/Weight Height: 5 ft 8 in Weight: 94.801 kg Allergies Allergy/AdvReac Type Severity Reaction Status Date / Time No Known Allergies Allergy Verified 06/09/19 13:11 Medications Home Medications Medication Instructions Recorded Confirmed Last Taken tramadol 50 mg PO DAILY PRN 12/03/18 06/09/19 Unknown trazodone 100 mg PO HS 12/03/18 06/09/19 12/30/18 20:00 ibuprofen 400 mg PO Q6H PRN 05/07/19 06/09/19 Unknown meloxicam 7.5 mg PO QAM 05/07/19 06/09/19 Unknown Past Medical History Medical History Chronic back pain Hx of psoriasis Obesity Osteoarthritis Tinnitus of both ears Past Family History Family History Mother Family history of diabetes mellitus Uncle Family hx of colon cancer Father FHx: stomach cancer Past Surgical History Surgical History History of colonoscopy History of selective injection of anesthetic agent around lumbar nerve root History of total left hip replacement Hx of hernia repair Social History Smoking Status: Former smoker tobacco type: cigarettes Smoking cigarettes per day: 1 PPD X 5 YEARS Smoking End Date: 20 YEARS AGO Hx Alcohol Use: Yes Alcohol type: beer alcohol intake frequency: a few times a week Hx Substance Use: No substance use type: does not use Testing Electrocardiogram Date: 12/08/18 NSR with sinus arrhythmia at 74bpm.
--- NOTE | 2019-07-30 09:48 | History & Physical Report ---
Date of Service July 30, 2019 Assessment & Plan (1) Osteoarthritis of right hip: DIAGNOSIS: Right hip osteoarthritis. PROCEDURE: Right total hip arthroplasty. PLAN: The patient is scheduled to undergo this procedure at the [facility] as an inpatient with Dr. Yoni Sanderson on August 04, 2019. Risks and complications of the procedure, such as infection, bleeding, pain, scarring, nerve and blood vessel damage, weakness, wound problems, stiffness, incomplete relief of symptoms, hardware failure, hardware loosening, wear, fracture, tendon or ligament injury, dislocation, leg length inequality, blood clots, embolism, heart attack, stroke, and , were explained to patient by today by Dr. Sanderson. Informed consent to perform the procedure was obtained. Patient was aware of the risks for undergoing a surgical procedure during the current COVID-19 pandemic. Currently he is asymptomatic of any type of symptoms. During his visit are at our clinic today he did receive COVID testing. We have obtained preoperative medical clearance from the patient's primary care provider, Dr. Mercado. We will need to obtain updated CBC with differential, complete metabolic panel, PT, INR, blood type and screen, urinalysis, urine culture, hemoglobin A1c, and a nasal culture for MRSA. Patient's EKG is up-to-date. Patient states that he will obtain the necessary testing at [facility] later today. Patient has a walker from his previous hip replacement surgery and he also has a hip kit. I again educated him about the use of antibiotics prior to dental procedures after total joint replacement surgery. I also advised him he will need to use an abduction pillow for 6 weeks postoperatively. I advised the patient that I will discharge him from the hospital with prescriptions for a narcotic pain medication, and send a prescription for diclofenac sodium to his pharmacy. I also advised him that we will have him take 2 baby aspirin per day for 30 days postoperatively for DVT prophylaxis, along with the use of WILMER stockings, and I will have him resume his prior use of acetaminophen. I will provide him with specific instructions in the discharge packet. The patient will most likely be inpatient for 1 night postoperatively. If he does well with physical therapy and occupational therapy, the next morning we will discharge him, and have him follow up in our clinic as scheduled on August 17 at 10:45 AM, and at that appointment, I will provide him with an order for outpatient physical therapy along with rehab protocol. The patient verbalized understanding of all information provided during today's visit, thanked us for the care he has received, and states if he has questions or concerns that should arise prior to the procedure date, he will contact the clinic accordingly. History of Present Illness Chief Complaint: Right hip pain Primary Care Provider: NO PCP HISTORY OF PRESENT ILLNESS: This 54-year-old male presents to the clinic today for his preoperative history and physical. The patient has a 3+ year history of bilateral hip pain with the left being greater than the right, however he underwent a left total hip arthroplasty in December 2018 and no longer has pain in his left hip. He localizes most of his right hip pain in the posterolateral aspect of the hip with radiation into the groin. The patient has failed conservative treatment with PT and nonsteroidal agents. He denies numbness or tingling. PAST SURGICAL HISTORY: Hernia repair, left total hip arthroplasty PAST MEDICAL HISTORY: None. FAMILY HISTORY: Positive for cancer and diabetes. ALLERGIES: The patient has no known drug allergies. CURRENT MEDICATIONS: acetaminophen(meloxicam 7.5 mg oral tablet) 7.5 mg PO Daily(traMADol 50 mg oral tablet) traZODone SOCIAL HISTORY: The patient denies a history of smoking or illicit drug use. States that he occasionally consumes 10-12 alcoholic beverages per week. . Allergies Allergy/AdvReac Type Severity Reaction Status Date / Time No Known Allergies Allergy Verified 06/09/19 13:11 Home Medications Home Medications Medication Instructions Recorded Confirmed Type tramadol 50 mg PO DAILY PRN 12/03/18 06/09/19 History trazodone 100 mg PO HS 12/03/18 06/09/19 History ibuprofen 400 mg PO Q6H PRN 05/07/19 06/09/19 History meloxicam 7.5 mg PO QAM 05/07/19 06/09/19 History Past Med/Surg History Medical History Chronic back pain Hx of psoriasis Obesity Osteoarthritis Tinnitus of both ears Surgical History History of colonoscopy History of selective injection of anesthetic agent around lumbar nerve root History of total left hip replacement Hx of hernia repair Family History Mother Family history of diabetes mellitus Uncle Family hx of colon cancer Father FHx: stomach cancer Social History Preferred Language: Hungarian Communication Ability: Effective Clinical Data Specialist Required: No Beliefs That Will Affect Care: None marital status: Current Living Situation: Spouse Feels Safe at Home: Yes Safety Concerns: Feels Safe At This Time Smoking Status: Former smoker Tobacco Type: cigarettes ; Cigarettes Per Day: 1 PPD X 5 YEARS ; Smoking End Date: 20 YEARS AGO ; Second Hand Exposure: Yes ; Hx Alcohol Use: Yes Alcohol type: beer Hx Substance Use: No Review of Systems All systems reviewed & are unremarkable except as noted in HPI & below Physical Exam Physical Exam: PHYSICAL EXAMINATION: Skin: The patient's skin is normal in appearance. No open skin lesions or discharge. Eyes: Pupils are equal and react to light and accommodating. Extraocular movements are intact. Throat: Posterior oropharynx is clear with absence of edema, erythema or exudate. Cardiovascular exam: The patient has a regular rate and rhythm with no murmurs or gallops appreciated. Lungs: Auscultation of lung morel reveals clear breath sounds throughout, no wheezing, rales or rhonchi. Abdomen is mildly obese, nondistended, nontender, with normoactive bowel sounds. Extremities: Right hip hip flexion is to 80 degrees before pain is elicited. External rotation is to 40 degrees, internal rotation is to negative 15 degrees. Stinchfield test is positive. Active abduction and adduction causes referred pain to the groin. There is crepitation with range of motion. There is tenderness to palpation over the anterior groin lateral aspect of the hip. Otherwise, the patient is neurovascularly intact in the left lower extremity. C mavis is soft and supple, nontender to palpation. Gait is antalgic. Neurological exam: Cranial nerves 2-12 are intact. No motor or sensory deficit. Psychological/general exam: The patient is alert and oriented x3 with proper grooming and hygiene
[~2019-08-04 09:53] MED LIST: ACETAMINOPHEN 500 MG TAB PO SCH; BUPIVACAINE 0.5 % 5 MG/1 ML PF 10ML VIAL ONE; CEFAZOLIN 2000MG 2,000 MG/15 ML SYR IV SCH; CeleBREX 200 MG CAP PO SCH; FAMOTIDINE 20 MG TAB PO SCH; LR 500ML BOLUS, THEN 15ML/HR IV SCH; LR 60ML/HR IV SCH; METOCLOPRAMIDE HCL 10 MG TABLET PO SCH; ROPIVACAINE 0.5% HCL/PF 150 MG, BUPIVACAINE 0.5% MPF 30 ML, EPINEPHrine 0.15 MG, Ketoro... INFIL SCH; SCOPOLAMINE 1.5 MG TDSY TD SCH; TRAMADOL HCL 50 MG TABLET PO SCH; TRANEXAMIC ACID 1,000 MG **IV Intra-op IV SCH; TRANEXAMIC ACID 1,000 MG **IV Pre-op IV SCH; dexAMETHasone 4 MG TAB PO SCH
[2019-08-04] MEDS ORDERED: LIDOCAINE HCL 2% 2 ML VIAL/AMP(20MG/ML) INFIL ONE (11:05)
[2019-08-04] MEDS ORDERED: ONDANSETRON INJ 2 MG/ML 2 ML VIAL ONE (11:05)
[2019-08-04] MEDS ORDERED: MIDAZOLAM HCL 1 MG/ML 2ML VIAL ONE ×2 (11:05→12:01)
[2019-08-04] MEDS ORDERED: GLYCOPYRROLATE 0.2 MG/ML VIAL ONE (11:05)
[2019-08-04] MEDS ORDERED: DEXAMETHASONE SOD INJ 4 MG/ML VIAL ONE (11:05)
[2019-08-04] MEDS ORDERED: PROPOFOL IV EMULSION 10 MG/ML 20 ML VIAL IV ONE ×2 (11:05→14:01)
[2019-08-04] MEDS ORDERED: HYDROmorphone INJ 1 MG/ML SYRINGE IV PRN (11:18)
[2019-08-04] MEDS ORDERED: ATROPINE SULFATE 0.1 MG/ML 10ML SYR IV PRN (11:18)
[2019-08-04] MEDS ORDERED: ePHEDrine sulfate 50 MG/ML AMP IV PRN (11:18)
[2019-08-04] MEDS ORDERED: ONDANSETRON INJ 2 MG/ML 2 ML VIAL IV PRN ×2 (11:18→14:49)
[2019-08-04] MEDS ORDERED: fentaNYL citrate 100 MCG/2 ML VIAL IV PRN (11:18)
--- NOTE | 2019-08-04 12:26 | History & Physical Bridge Note ---
Date of Service August 04, 2019 History & Physical Bridge Note I have examined the patient, reviewed the History & Physical and in the interval since the performance of the History & Physical I have noted the following changes of clinical significance: no changes noted except COVID testing was negative.
[2019-08-04] MEDS ORDERED: ORTHO JOINT ANESTHETIC ONE (12:44)
--- NOTE | 2019-08-04 14:29 | Post Operative Brief Note ---
Immediate Post Op Note v1 Date of Surgery August 04, 2019 Pre & Post Diagnosis Operation Date: 08/04/19 07:30 <No data on this case meets the specified criteria> Operation Date: 08/04/19 12:00 Pre-Op Diagnosis: Right Hip Osteoarthritis Post-Op Diagnosis: Right Hip Osteoarthritis I identified the patient and participated in the time-out.: Yes Procedure Operation Date: 08/04/19 07:30 <No data on this case meets the specified criteria> Operation Date: 08/04/19 12:00 Actual Procedures p Right Total Hip Arthroplasty(Right) - Yoni Sanderson MD Surgeon Yoni Sanderson MD [employer] Jimenez PA-C Estimated Blood Loss 100 Findings Consistent with Post-Op Diagnosis Fluids 1600 cc Specimens Femoral head Anesthesia Type Spinal MAC Complications none Disposition Accompanied Patient To Recovery: No Disposition: Recovery Room
[2019-08-04] MEDS ORDERED: ALUMINUM/MAGNESIUM SUSP 30 ML UDC PO PRN (14:49)
[2019-08-04] MEDS ORDERED: METOCLOPRAMIDE HCL INJ 5 MG/ML 2 ML VIAL IV PRN (14:49)
[2019-08-04] MEDS ORDERED: NALOXONE HCL 0.4 MG/1 ML VIAL/CARP IV PRN (14:49)
[2019-08-04] MEDS ORDERED: MAGNESIUM HYDROXIDE SUSP 30 ML UDC PO PRN (14:49)
[2019-08-04] MEDS ORDERED: TAMSULOSIN HCL 0.4 MG CAP PO PRN (14:49)
[2019-08-04] MEDS ORDERED: DiphenhydrAMINE HCL 50 MG/ML VIAL IV PRN (14:49)
[2019-08-04] MEDS ORDERED: bisacodyL 10 MG SUPP PR PRN (14:49)
--- NOTE | 2019-08-04 14:49 | Operative Report ---
Post Operative Report Pre & Post Diagnosis Operation Date: 08/04/19 07:30 <No data on this case meets the specified criteria> Operation Date: 08/04/19 12:00 Pre-Op Diagnosis: Right Hip Osteoarthritis Post-Op Diagnosis: Right Hip Osteoarthritis I identified the patient and participated in the time-out.: Yes Procedure Operation Date: 08/04/19 07:30 <No data on this case meets the specified criteria> Operation Date: 08/04/19 12:00 Actual Procedures p Right Total Hip Arthroplasty(Right) - Yoni Sanderson MD Surgeon Teddy Jimenez PA-C Gauge Inspector [employer] Jimenez PA-C Estimated Blood Loss 100 Findings Consistent with Post-Op Diagnosis Specimens Right femoral head Complications none Disposition Accompanied Patient To Recovery: Yes Description of Procedure I was present during the entire case assisting with retraction, wound closure and dressing application. Please see Dr. Sanderson procedure note for specifics of the case. I attest to the content of the Intraoperative Record and any orders documented therein. Any exceptions are noted below.
[2019-08-04] MEDS ORDERED: ACETAMINOPHEN 325 MG TAB PO PRN (14:52)
[2019-08-04] MEDS ORDERED: TRAMADOL HCL 50 MG TABLET PO PRN (14:52)
--- NOTE | 2019-08-04 15:13 | Operative Report (OR) ---
DATE OF OPERATION: 08/04/2019 PREOPERATIVE DIAGNOSIS: Right hip osteoarthritis. POSTOPERATIVE DIAGNOSIS: Right hip osteoarthritis. OPERATIONS PERFORMED: Right total hip arthroplasty. SURGEON: Yoni Sanderson MD. ASSOCIATE JAVA DEVELOPER: Parvez Jimenez PA-C. ESTIMATED BLOOD LOSS: 100 mL. INTRAVENOUS FLUIDS: 1600 mL of crystalloid. SPECIMENS: None. COMPLICATIONS: None. IMPLANTS: 1. DePuy Volin Gription acetabular shell sector cup 56 mm outer diameter. 2. Volin cancellous bone screw 6.5 mm x 40 mm. 3. Volin Ultrex polyethylene liner neutral for a 36 mm femoral head. 4. DePuy Canadian size 6 standard offset femoral stem with Porocoat. 5. Biolox delta ceramic femoral head 36 mm diameter with a +1.5 offset. INDICATIONS: The patient is a 54-year-old male who has undergone a left total hip arthroplasty approximately 7 months ago with a good result. He has right hip osteoarthritis that has been refractory to conservative management. X-rays show end-stage osteoarthritis with complete joint space loss and peripheral osteophyte formation. I had a long discussion with him about the risks and benefits of surgery, alternatives to surgery and expected outcomes. After reviewing all these, he elected to proceed with surgery. All questions were answered. Informed consent was signed. DESCRIPTION OF THE OPERATION: The patient was identified in the preoperative holding area where his surgical site was marked. He was given a spinal anesthetic, then brought back to the main operating room where he was placed on the operating room table and moved into the lateral decubitus position. Axillary roll was placed. All bony prominences were padded. Perioperative antibiotics were administered as well as tranexamic acid 1 gram IV. He was prepped and draped in normal sterile fashion. Prior to incision, a multidisciplinary timeout was called. All in the room were in agreement. I began by making a 16 cm long incision for posterior approach to the hip. I dissected through subcutaneous tissues to the level of fascia, which was incised in line with the incision. A Charnley bow was placed. The trochanteric bursa was excised. Piriformis and short external rotators were dissected off the posterior aspect of the hip capsule. A box cut was made in the capsule. Femoral head was dislocated. The center of the femoral head to lesser trochanteric distance was measured at 58 mm. We then made a femoral neck cut at 10 mm above the lesser trochanter, which was our preoperative plan. The femoral head was removed and sent for permanent section. The acetabulum was then exposed. The labrum was sharply excised. The contents of cotyloid fossa were removed with electrocautery and a curette. We then began reaming with a size 48 mm reamer. This was used to ream it down to the medial wall. We then sequentially reamed him up all the way to a size 56 reamer. This gave us a nice cancellous bleeding bone. We then irrigated out the acetabulum and opened up the Volin Gription 56 mm sector cup. This was impacted down into position with 25 degrees of anteversion and 45 degrees of lateral opening. A single cancellous bone screw was used, 40 mm in length. Excellent fixation was obtained. The polyethylene liner for a 36-mm femoral head was then inserted and impacted into position. The locking mechanism was checked and we ensured that it had engaged. Next, the proximal femur was exposed. The abductors were protected. The lateral hip capsule was excised. A box osteotome was used to remove the lateral neck. Intramedullary guide was used followed by the lateralizing reamer. We then reamed him up to a size 6 Canadian. We then broached him all the way up to a size 6. We had placed a size 5 on his other side. We began by attempting to trial him with a high offset neck and a +1.5 head because we had gone up one size in his femur compared to the other side, which gave us more offset. However, we were unable to reduce the hip. Therefore, we downsized him to a standard neck and then we were able to reduce the hip. We checked his leg lengths and they were symmetric. He was stable in extension and external rotation. He was stable in the sleeper position. At 90 degrees of hip flexion, he could be internally rotated 55 degrees before leaving out of the cup. I was very happy with the stability exam. Therefore, we removed the trial components. The femoral canal was irrigated and dried. The real size 6 standard offset Canadian femoral stem was opened up and impacted down into position. This sat about 1 mm more proud than the broach. Therefore, opened up the +1.5 offset ceramic femoral head 36 mm diameter and impacted this onto the trunnion, which had been cleaned and dried. The hip was then atraumatically reduced. We rechecked his leg lengths, which were symmetric. We then irrigated out the wound with a dilute Betadine solution. Next, the periarticular injection cocktail was placed. The piriformis and short external rotators and posterior hip capsule were repaired through bone tunnels in the posterior aspect of the greater trochanter using #2 Vicryl suture. The fascia was run with a looped #1 PDS suture. Subcutaneous layer was closed with #1 PDS. 2-0 Vicryl was used in the deep dermis. ZipLine was used for the skin. Silverlon dressing was placed followed by compressive dressing. The patient was then carefully rolled supine. We checked his leg lengths and they were symmetric. His sedation was lifted and he was transferred to recovery room in stable condition. POSTOPERATIVE COURSE: The patient will be admitted overnight for pain control and monitoring. He will be weightbearing as tolerated with posterior hip precautions. Aspirin for DVT prophylaxis. I attest to the content of the Intraoperative Record and any orders documented therein. Any exception s are noted below.
--- NOTE | 2019-08-04 15:28 | XRay Report ---
AP PELVIS, CROSSTABLE LATERAL RIGHT HIP History: Right total hip arthroplasty. Degenerative arthritis. Postop. FINDINGS: The patient is status post a right total hip arthroplasty. The hardware is intact. No fract ure or dislocation. Evidence for prior left total hip arthroplasty. IMPRESSION: Right total hip arthroplasty. No evidence for hardware complication ACT 112: Negative or not required by law. Electronically signed by: Axel Barajas M.D. 08/04/2019 3:27 PM
--- NOTE | 2019-08-04 15:31 | Anesthesiology Progress Note ---
Date of Service August 04, 2019 Anesthesia Post Procedure Vital Signs Vital Signs: Temp Pulse Pulse Resp BP BP Pulse Ox 08/04/19 15:30 53 L 15 128/69 94 08/04/19 15:20 36.7 C 53 L 12 118/81 97 08/04/19 15:10 60 11 L 127/79 96 08/04/19 15:00 57 L 14 129/85 99 08/04/19 14:50 52 L 11 L 130/77 95 08/04/19 14:42 36.0 C L 58 L 12 116/72 96 08/04/19 10:30 37 C 70 20 148/88 H 97 Pain Intensity Right Hip: Pain Intensity: 0 Notes Mental Status: alert / awake / arousable and participated in evaluation Patient Amnestic to Procedure: Yes Nausea / Vomiting: adequately controlled Pain: adequately controlled Airway Patency, RR, SpO2: stable & adequate BP & HR: stable & adequate Hydration State: stable & adequate Neuraxial Anesthesia: was administered and sensory block is resolving Anesthetic Complications: no major complications apparent and Pt Satisfied with anesthetic care
[2019-08-04] MEDS: SODIUM CHLORIDE 0.9% 1000ML 1,000 ML IV SCH (17:44)
[2019-08-04] MEDS: CHECK SCOPOLAMINE PATCH PLACEMENT SCH ×2 (17:45→23:20)
[2019-08-04] MEDS: KETOROLAC 30 MG/ML VIAL IV SCH ×2 (17:45→23:20)
[2019-08-04] MEDS: OXYCODONE HCL IR 5 MG TAB (IMMEDIATE RELEASE) PO PRN (18:43)
[2019-08-04] MEDS ORDERED: TRANEXAMIC ACID / 0.7% NACL 1,000 MG/100 ML BAG IV SCH (20:51)
[2019-08-04] MEDS: CEFAZOLIN 2000MG 2,000 MG/15 ML SYR IV SCH (20:52)
[2019-08-04] MEDS: ASPIRIN 81 MG ECTAB PO SCH (20:52)
[2019-08-04] MEDS: DOCUSATE SODIUM 100 MG CAP PO SCH (20:55)
[2019-08-04] MEDS ORDERED: TRAZODONE HCL 100 MG TAB PO SCH (21:00)
[2019-08-04] MEDS ORDERED: SENNA 8.6 MG TAB PO SCH (21:00)
[2019-08-04] MEDS: ACETAMINOPHEN 500 MG TAB PO SCH (21:03)
[2019-08-05] MEDS: CEFAZOLIN 2000MG 2,000 MG/15 ML SYR IV SCH (03:34)
[2019-08-05] MEDS: SODIUM CHLORIDE 0.9% 1000ML 1,000 ML IV SCH (03:37)
[2019-08-05] MEDS: OXYCODONE HCL IR 5 MG TAB (IMMEDIATE RELEASE) PO PRN ×2 (03:43→11:51)
[2019-08-05] MEDS: KETOROLAC 30 MG/ML VIAL IV SCH ×2 (05:48→11:52)
[2019-08-05] MEDS: ACETAMINOPHEN 500 MG TAB PO SCH ×2 (05:48→13:24)
[2019-08-05 06:52] LABS: Basophils # (auto) 0.02 K/uL (0-0.2); Basophils % (auto) 0.1 %; Eosinophils # (auto) 0.02 K/uL (0-0.5); Eosinophils % (auto) 0.1 %; Hematocrit (blood only) 36.4 % (42-52); Hemoglobin 12.5 g/dL (14.0-18.0); Immature Granulocytes # (auto) 0.02 K/uL (0.00-0.02); Immature Granulocytes % (auto) 0.1 %; Lymphocytes # (auto) 1.33 K/uL (1.2-3.4); Lymphocytes % (auto) 9.8 %; Mean Corpuscular Hemoglobin 30.8 pg (25-34); Mean Corpuscular Hgb Conc 34.3 g/dL (32-36); Mean Corpuscular Volume 89.7 fL (80-100); Mean Platelet Volume 9.4 fL (7.4-10.4); Monocytes # (auto) 1.18 K/uL (0.11-0.59); Monocytes % (auto) 8.7 %; Neutrophils # (auto) 10.94 K/uL (1.4-6.5); Neutrophils % (auto) 81.2 %; Platelet Count 232 K/uL (130-400); RDW Coefficient of Variation 12.2 % (11.5-14.5); RDW Standard Deviation 39.7 fL (36.4-46.3); Red Blood Count 4.06 M/uL (4.7-6.1); White Blood Count 13.51 K/uL (4.8-10.8)
[2019-08-05 07:19] LABS: BUN Creatinine Ratio 13.3 (10-20); Calcium 8.4 mg/dl (8.5-10.1); Creatinine Clr Calc Pharmacy 91.4 ml/min; Est GFR (African American) 95.7; Est GFR (Non-African American) 82.5
--- NOTE | 2019-08-05 07:36 | Anesthesiology Progress Note ---
Date of Service August 05, 2019 Anesthesia Post Procedure Vital Signs Vital Signs: Temp Pulse Pulse Resp BP BP Pulse Ox 08/05/19 07:08 36.7 C 62 16 107/68 94 08/05/19 03:37 36.7 C 72 16 100/61 95 08/04/19 23:36 36.5 C 53 L 18 107/65 93 08/04/19 19:38 36.4 C L 76 16 120/79 97 08/04/19 18:10 36.4 C L 83 20 134/78 98 08/04/19 17:05 36.3 C L 70 16 127/77 97 08/04/19 16:35 36.2 C L 58 L 16 142/81 H 97 08/04/19 16:05 36.6 C 58 L 20 131/78 96 08/04/19 15:45 54 L 12 132/80 97 08/04/19 15:30 53 L 15 128/69 94 08/04/19 15:20 36.7 C 53 L 12 118/81 97 08/04/19 15:10 60 11 L 127/79 96 08/04/19 15:00 57 L 14 129/85 99 08/04/19 14:50 52 L 11 L 130/77 95 08/04/19 14:42 36.0 C L 58 L 12 116/72 96 08/04/19 10:30 37 C 70 20 148/88 H 97 Pain Intensity Right Hip: Pain Intensity: 5 Transfer of Care Handoff Completed per policy Notes Mental Status: alert / awake / arousable Nausea / Vomiting: adequately controlled Pain: adequately controlled Airway Patency, RR, SpO2: stable & adequate BP & HR: stable & adequate Hydration State: stable & adequate Neuraxial Anesthesia: was administered and sensory block resolved Anesthetic Complications: no major complications apparent and Pt Satisfied with anesthetic care
[2019-08-05] MEDS ORDERED: dexAMETHasone 4 MG TAB PO SCH (08:00)
[2019-08-05] MEDS ORDERED: MULTIVITAMIN TAB PO SCH (09:00)
[2019-08-05] MEDS ORDERED: MELOXICAM 7.5 MG TAB PO SCH (09:00)
[2019-08-05] MEDS: DOCUSATE SODIUM 100 MG CAP PO SCH (09:02)
[2019-08-05] MEDS: CHECK SCOPOLAMINE PATCH PLACEMENT SCH (09:02)
[2019-08-05] MEDS: ASPIRIN 81 MG ECTAB PO SCH (09:03)
--- NOTE | 2019-08-05 12:13 | Orthopedic Progress Note ---
Date of Service August 05, 2019 Assessment & Plan (1) History of total right hip arthroplasty: PT/OT Ice with EZ wrap Pain control with PO meds Total hip precautions WBAT with walker assistance Abduction pillow use for 6 wks DVT prophy with Aspirin and TEDs Discharge home with [facility] Follow up at [facility] as scheduled in 2 wks With questions call Admission and Anticipated Discharge Date Admission Date: August 04, 2019 Subjective This 54 yo M is day 1 s/p Right total hip arthroplasty. He is sitting comfortable in chair. States that he did very well with PT. He walked two laps around [address] and did stairs without difficulty. Pain is well controlled with PO meds. Patient is ready for discharge. Currently he denies CP, SOB, nausea, vomiting, fever, chills, sweats or lethargy. Review of Systems Review of Systems: All systems reviewed & are unremarkable except as noted in Subjective Physical Exam Physical Exam: Right hip: dressing clean, dry and intact. Quad strength 5/5. Able to easily perform SLRT. No trouble actively dorsi/plantar flexing foot. Minimal pain with log roll and light passive internal rotation. No pain with light passive external rotation. Periph pulses palpable. Cap refill < 2 seconds and NV intact in Rt LE. Results & Data ([facility]) Vital Signs (Past 12 Hours) Vital Signs Temp Pulse Resp BP Pulse Ox 08/05/19 12:04 36.5 C 59 L 18 108/74 93 08/05/19 07:08 36.7 C 62 16 107/68 94 08/05/19 03:37 36.7 C 72 16 100/61 95 Laboratory Results 08/05/19 08/05/19 Range/Units 06:31 06:31 WBC 13.51 H (4.8-10.8) K/uL RBC 4.06 L (4.7-6.1) M/uL Hgb 12.5 L (14.0-18.0) g/dL Hct 36.4 L (42-52) % MCV 89.7 (80-100) fL MCH 30.8 (25-34) pg MCHC 34.3 (32-36) g/dL RDW Std Deviation 39.7 (36.4-46.3) fL RDW Coeff of Arie 12.2 (11.5-14.5) % Plt Count 232 (130-400) K/uL MPV 9.4 (7.4-10.4) fL Immature Gran % (Auto) 0.1 % Neut % (Auto) 81.2 % Lymph % (Auto) 9.8 % Wheeler % (Auto) 8.7 % Eos % (Auto) 0.1 % Baso % (Auto) 0.1 % Immature Gran # (Auto) 0.02 (0.00-0.02) K/uL Neut # (Auto) 10.94 H (1.4-6.5) K/uL Lymph # (Auto) 1.33 (1.2-3.4) K/uL Wheeler # (Auto) 1.18 H (0.11-0.59) K/uL Eos # (Auto) 0.02 (0-0.5) K/uL Baso # (Auto) 0.02 (0-0.2) K/uL Sodium 138 (136-145) mmol/L Potassium 4.0 (3.5-5.1) mmol/L Chloride 106 (98-107) mmol/L Carbon Dioxide 26 (21-32) mmol/L Anion Gap 6.0 (3-11) BUN 14 (7-18) mg/dl Creatinine 1.03 (0.6-1.4) mg/dl Est Cr Clr Drug Dosing 91.4 ml/min Est GFR ( Amer) 95.7 Est GFR (Non-Af Amer) 82.5 BUN/Creatinine Ratio 13.3 (10-20) Glucose 135 H (70-99) mg/dl Calcium 8.4 L (8.5-10.1) mg/dl
--- NOTE | 2019-08-05 12:13 | Discharge Summary ---
Date of Service August 05, 2019 Admission HPI Per Admitting Provider HISTORY OF PRESENT ILLNESS: This 54-year-old male presents to the clinic today for his preoperative history and physical. The patient has a 3+ year history of bilateral hip pain with the left being greater than the right, however he underwent a left total hip arthroplasty in December 2018 and no longer has pain in his left hip. He localizes most of his right hip pain in the posterolateral aspect of the hip with radiation into the groin. The patient has failed conservative treatment with PT and nonsteroidal agents. He denies numbness or tingling. PAST SURGICAL HISTORY: Hernia repair, left total hip arthroplasty PAST MEDICAL HISTORY: None. FAMILY HISTORY: Positive for cancer and diabetes. ALLERGIES: The patient has no known drug allergies. CURRENT MEDICATIONS: acetaminophen(meloxicam 7.5 mg oral tablet) 7.5 mg PO Daily(traMADol 50 mg oral tablet) traZODone SOCIAL HISTORY: The patient denies a history of smoking or illicit drug use. States that he occasionally consumes 10-12 alcoholic beverages per week. . Admission Exam Per Admitting Provider PHYSICAL EXAMINATION: Skin: The patient's skin is normal in appearance. No open skin lesions or discharge. Eyes: Pupils are equal and react to light and accommodating. Extraocular movements are intact. Throat: Posterior oropharynx is clear with absence of edema, erythema or exudate. Cardiovascular exam: The patient has a regular rate and rhythm with no murmurs or gallops appreciated. Lungs: Auscultation of lung morel reveals clear breath sounds throughout, no wheezing, rales or rhonchi. Abdomen is mildly obese, nondistended, nontender, with normoactive bowel sounds. Extremities: Right hip hip flexion is to 80 degrees before pain is elicited. External rotation is to 40 degrees, internal rotation is to negative 15 degrees. Stinchfield test is positive. Active abduction and adduction causes referred pain to the groin. There is crepitation with range of motion. There is tenderness to palpation over the anterior groin lateral aspect of the hip. Otherwise, the patient is neurovascularly intact in the left lower extremity. Calf is soft and supple, nontender to palpation. Gait is antalgic. Neurological exam: Cranial nerves 2-12 are intact. No motor or sensory deficit. Psychological/general exam: The patient is alert and oriented x3 with proper grooming and hygiene Principal Diagnosis Right Hip Osteoarthrtitis Discharge Exam Right hip: dressing clean, dry and intact. Quad strength 5/5. Able to easily perform SLRT. No trouble actively dorsi/plantar flexing foot. Minimal pain with log roll and light passive internal rotation. No pain with light passive external rotation. Periph pulses palpable. Cap refill < 2 seconds and NV intact in Rt LE. Discharge Data Allergies Allergy/AdvReac Type Severity Reaction Status Date / Time No Known Allergies Allergy Verified 08/04/19 11:00 Consultations 08/05/19 08:00 Consult Case Management - Discharge Planning Routine Procedures Performed Operation Date: 08/04/19 07:30 <No data on this case meets the specified criteria> Operation Date: 08/04/19 12:00 Actual Procedures p Right Total Hip Arthroplasty(Right) - Yoni Sanderson MD Hospital Course (1) History of total right hip arthroplasty: Patient did very well overnight and this AM, without complication. He is ready to be discharged home and is set up with in home therapy with [facility]. PT/OT Ice with EZ wrap Pain control with PO meds Total hip precautions WBAT with walker assistance Abduction pillow use for 6 wks DVT prophy with Aspirin and TEDs Discharge home with [facility] Follow up at [facility] as scheduled in 2 wks With questions call Total Time Total Time Spent Total Time Spent (In Minutes): 15 mins Total Time Includes: Examination of the Patient, Discharge Planning and Medication Reconciliation Discharge Plan Discharge Items Patient Disposition: Home - Home Health Services Reason For Visit: Right Hip Osteoarthritis Discharge Diagnosis: Right Hip Osteoarthritis Activity: As commented below Lifting: None Bathing: Keep incision dry Bathing Comment: May shower tomorrow Sexual Activity: Wait until after follow-up appointment Exercise/Sports: Wait until after follow-up appointment Driving/Machine Use: No driving until cleared by hearing specialist Weightbearing: Right weightbearing Weightbearing Comment: as tolerated with walker assistance Non-emergency contact: Primary Care Provider Call non-emergency contact if: you have any medication questions, your pain is not controlled, your temperature is above 101.5, your wound has increased drainage and your wound pain has increased Follow-up/Referrals: PCP,NO [Primary Care Provider] - Diet: Regular Addtl Attending Provider Instructions: Post-operative Instructions Dear Patient and Family/Friends, Before you are discharged from the hospital, it is important to know what to expect when you get home after surgery. To that end, we have created this sheet of discharge instructions which covers many commonly asked questions. Make sure you go through this sheet in its entirety with your nurse before you are discharged. Please note that we will go over the specifics of your surgery and recovery when you return for your first post-operative visit. Sincerely, Dr. Sanderson Medications 1. Oxycodone 5 mg: take 1-2 tabs by mouth every 4-6 hours as needed for pain relief. A prescription for 30 tabs of this medication will be sent to your pharmacy. 2. Diclofenac Sodium 75 mg: take 1 tab twice daily for 30 days post operatively for pain and inflammation relief. A prescription for this with 1 refill will be sent to your pharmacy. Do not take Meloxicam while using this medication. 3. Aspirin 81 mg: Take 1 tab twice daily for 30 days post operative for blood clot prevention. Please purchase this medication. 4. Extra Strength Tylenol 500mg: take 2 tabs every 6-8 hours as needed for pain relief. Please purchase. Pain Expect to be in a fair amount of pain after surgery. Remember, our goal is not to eliminate your pain, but to make it tolerable. It is a good idea to stay ahead of your pain by taking the medications you were prescribed once you get home. Typically, the pain starts improving 3-7 days after surgery. You should start weaning off the narcotic pain medication (oxycodone, hydrocodone, hydromorphone, morphine) as soon as your pain improves. Please call our office if your pain is not adequately controlled. Ice Ice your operative site at least 5 times a day for 15-30 minutes at a time. Make sure you have a thin cloth between the ice or cooling unit and your skin to prevent cosme bite. This is especially important if you received a nerve block. Continue icing your operative site for the first 5-7 days after surgery, then as needed. Diet/Nausea/Vomiting Start by drinking clear liquids and eating crackers. If you can tolerate this, then you may resume your normal diet. If you feel nauseated or vomit, take Zofran/ondansetron (if prescribed). Please call our office if you have intractable nausea or vomiting, or, if after hours, you may go to the Emergency Room for help. Constipation Constipation is a common side effect of narcotic pain medication. If you have not had a bowel movement within 2 days after surgery, we recommend purchasing an over the counter laxative such as Milk of Magnesia, Dulcolax, or Miralax from a local pharmacy, and taking it as instructed. Call our clinic if any questions. Nerve block The anesthesia team sometimes places a nerve block to help with post-operative pain control. This results in significant numbness and inability to move the extremity. The nerve block usually wears off in 8-12 hours, but sometimes can last up to 24 hours. Please call our office if you are still unable to move your extremity after 24 hours, unless you received a pain pump to take home. Nerve blocks typically wear off quickly, so start taking pain medication as soon as you start feeling soreness near your surgical site. Weight bearing and Range of Motion. Do not bear any weight through your operative extremity immediately after surgery. If you had upper extremity surgery, do not lift anything with that arm. If you are in a knee brace, keep it locked in place until your follow-up. We will discuss your weight bearing, range of motion, and lifting restrictions in detail at your first post-operative appointment. Continuous Passive Motion (CPM) Machine If you were prescribed a CPM machine, it will start after your first post- operative appointment, at which time we will give you instructions on the range of motion settings and duration of treatment Physical therapy You will be given a prescription for physical therapy or occupational therapy at your first post-operative appointment. Typically, patients start therapy within 1 week of surgery Wound care and showering We will inspect your wound at your first post-operative visit, and may do a dressing change at that time. Most patients will be in a water-proof dressing that is removed 14 days after surgery. It is normal to see some dried blood on the dressing. Do not remove your dressing, paper strips or sutures yourself unless you are given permission. Showering is allowed the day after surgery. Do not scrub or remove any dressings. The wound should not be submerged underwater (i.e. in a bathtub or pool) until 4 weeks after surgery WILMER stockings If you were given white stockings, these are to be worn at all times except to shower (on both legs) for the first 2 weeks after surgery. Driving You may not drive while taking narcotic pain medication or while in a cast, splint, sling or brace. You, the patient, need to make the final determination about when you are safe to drive, however, the earliest you may consider driving after surgery is below: Hand/Wrist/Elbow Surgery: 3 days Shoulder Surgery: 2 weeks Hip,/Knee/Ankle Surgery: 4 weeks Fracture repair: 6 weeks Return to Work Your return to work depends on what surgery was done and what type of work you do. Please bring any paperwork your employer needs completed to your first p ost-operative visit. Also, bring a description of your job duties, as this helps us to understand what risks you may face at work. Travel Avoid long distance travel (greater than 1 hour) in airplanes and cars for the first 6 weeks after surgery. If you must travel, you need to have a Doppler ultrasound done before you travel to rule out a blood clot in your legs. Follow-up You should have a follow-up appointment already scheduled 1-2 days after surgery. If not, please contact our office to make this appointment before you leave the hospital. When to call the office It is normal to have swelling and bruising in the limb that was operated on. This will improve with time. It is also normal to have fevers for the first 2 days after surgery. Reasons you should call your doctor include: Uncontrolled pain; Nausea, vomiting, or constipation that does not improve with medication; Fevers over 101.5, chills, sweats; Drainage or bleeding from the wound; Foul odor; Spreading areas of redness; Any other concerns Pending Studies at Discharge: No Stand-Alone Forms: [facility] Medications and DC Order Prescriptions: New oxycodone 5 mg tablet 5 mg PO Q6H Qty: 30 RF: 0 diclofenac sodium 75 mg tablet,delayed release (DR/EC) 75 mg PO BID 30 Days Qty: 60 RF: 1 Continued trazodone 100 mg Tablet 100 mg PO HS RF: 0 acetaminophen [Tylenol Arthritis Pain] 650 mg Tablet Extended Release 650 mg PO Q8H PRN (Reason: Pain) RF: 0 Discontinued tramadol 50 mg Tablet 50 mg PO DAILY PRN (Reason: Pain) RF: 0 meloxicam 7.5 mg Tablet 7.5 mg PO QAM RF: 0 Discharge Orders: Discharge Order (Routine); Ordered 08/05/19 Ordered By: Teddy Jimenez Admission Data Admit Date/Time: 08/04/19 14:49 Attending Provider: Yoni Sanderson Admit Provider: Yoni Sanderson Primary Care Provider: PCP,NO Other Providers: [facility]
[2019-08-05] MEDS ORDERED: CeleBREX 200 MG CAP PO SCH (21:00)
== END 2019-08-05 13:56 | disposition home health service (06) | DRG 470 ==
LOC: ASU 09:53 → 3N 14:49